=== PATIENT | female | born 1945 | race Caucasian/White ===

== ENCOUNTER → 2016-02-28 | Outpatient (CLI) | payer MEDICARE, BC | LOC: MC.RAD 09:19 | DX: Z12.31 Encounter for screening mammogram for malignant neoplasm of breast (principal) ==

== ENCOUNTER → 2017-03-16 | Outpatient (CLI) | payer MEDICARE, BC | LOC: MC.RAD 02-28 09:40 | DX: Z12.31 Encounter for screening mammogram for malignant neoplasm of breast (principal) ==

== ENCOUNTER → 2018-05-08 | Outpatient (CLI) | payer MEDICARE, BC | LOC: MC.RAD 14:56 | DX: Z12.31 Encounter for screening mammogram for malignant neoplasm of breast (principal) ==

== ENCOUNTER → 2020-01-15 | Outpatient (CLI) | payer MEDICARE, BC | LOC: MC.RAD 10:33 | DX: Z12.31 Encounter for screening mammogram for malignant neoplasm of breast (principal) ==

== ENCOUNTER → 2021-03-22 | Outpatient (CLI) | payer MEDICARE, BC | LOC: MC.RAD 10:00 | DX: Z12.31 Encounter for screening mammogram for malignant neoplasm of breast (principal) ==

== ENCOUNTER → 2021-07-12 | Outpatient (RCR) | payer MEDICARE, BC | END | disposition home or self-care (01) | LOC: WSOT | DX: S66.012D Strain of long flexor muscle, fascia and tendon of left thumb at wrist and hand level, subsequent encounter (principal); X58.XXXD Exposure to other specified factors, subsequent encounter ==

== ENCOUNTER 2021-08-08 09:30 | Outpatient (RCR) | payer MEDICARE, BC | END 2021-08-11 | disposition home or self-care (01) | LOC: WSOT | DX: S66.012D Strain of long flexor muscle, fascia and tendon of left thumb at wrist and hand level, subsequent encounter (principal); X58.XXXD Exposure to other specified factors, subsequent encounter ==

== ENCOUNTER 2021-08-16 13:46 | Outpatient (RCR) | payer MEDICARE, BC | END 2021-09-11 | disposition home or self-care (01) | LOC: WSOT | DX: S66.012D Strain of long flexor muscle, fascia and tendon of left thumb at wrist and hand level, subsequent encounter (principal); Z98.890 Other specified postprocedural states; X58.XXXD Exposure to other specified factors, subsequent encounter ==

== ENCOUNTER → 2023-08-02 | Outpatient (CLI) | payer MEDICARE, BC | LOC: MC.RAD 08:48 | DX: Z12.31 Encounter for screening mammogram for malignant neoplasm of breast (principal) ==